=== PATIENT | male | born 1990 | race Hispanic/Latino ===

== ENCOUNTER 2016-07-22 09:47 | Day surgery (SDC) | payer MEDICAID ==
[2016-06-30 10:42] VITALS: BMI 18.8
[2016-07-22] MEDS ORDERED: Acetaminophen/Codeine elixir 120-12mg/5ml PO PRN (10:06)
[2016-07-22] MEDS ORDERED: Dextrose 5%/0.45% NS 1,000 ML IV SCH (10:15)
[2016-07-22] MEDS ORDERED: ceFAZolin IV 1 gm in Dextrose 1 GM/50 ML BAG IVPB ONE ×2 (10:29→12:05)
[2016-07-22] MEDS ORDERED: Lactated Ringer's 1,000 ML IV ONE (11:55)
[2016-07-22] MEDS ORDERED: Propofol 10 mg/ml Inj (20 ML) ONE ×2 (12:10→12:18)
[2016-07-22] MEDS ORDERED: Succinylcholine Chloride 20 mg/ml Syr (5 ml) IV ONE (12:14)
--- NOTE | 2016-07-22 12:32 | OP ---
PROCEDURE DATE: 07/22/2016 PREOPERATIVE DIAGNOSIS: Chronic tonsillitis. POSTOPERATIVE DIAGNOSIS: Chronic tonsillitis. PROCEDURE: Tonsillectomy. SIGNIFICANT FINDINGS: Chronically infected tonsils. DESCRIPTION OF PROCEDURE: The patient was brought in the room, placed in supine position. Anesthesi a was initiated through an ET tube. The patient was draped in usual manner. Mouth gag was placed in oral cavity, opened, suspended on the [place] dye stand loader usual manner. Right tonsil was grasped, pulled medially. Incision was made in the anterior tonsillar pillar using plasma knife. Dissection was don e between tonsil and tonsillar fossa using plasma knife until the tonsil was removed. Bleeding was c ontrolled using plasma knife. Next, the other tonsil was grasped, pulled medially. Incision was mad e in the anterior tonsillar pillar using plasma knife. Dissection was done between tonsil and tonsil lar fossa using plasma knife until the tonsil was removed. Bleeding was controlled using plasma knif e. Both tonsillar beds were rubbed vigorously with plasma knife wand. No bleeding was noted. Mouth gag was let down for 30 seconds, put back up, no bleeding was noted. Mouth gag was taken down and r emoved. The patient was taken off anesthesia and taken to recovery room in stable manner. Ion Barnes MD cc: [id number] TT: 07/22/2016 12:32:02 glenis
[2016-07-22] MEDS ORDERED: HYDROmorphone 0.5 mg/0.5 ml ISec IVP PRN (12:39)
[2016-07-22 12:55] VITALS: O2SAT 100
[2016-07-22] MEDS ORDERED: HYDROmorphone 0.5 mg/0.5 ml ISec IVP ONE (13:07)
[2016-07-22 14:48] VITALS: BP 115/70; PULSE 90; RESP 18; TEMP 97
== END 2016-07-22 14:50 | disposition home or self-care (01) ==
LOC: C.SDS 09:47
PROVIDERS: ATTEND Otolaryngology
DX: J35.01 Chronic tonsillitis (principal)
CPT/HCPCS: 42826; 88304; J0690; J1170; J2405; J2704; J3010; J7120

== ENCOUNTER 2016-07-28 05:18 | Emergency (ER) | payer MEDICAID ==
[2016-06-30 10:42] VITALS: BMI 18.8
== END 2016-07-28 06:15 | disposition home or self-care (01) ==
LOC: C.ER 05:18
DX: J95.831 Postprocedural hemorrhage of a respiratory system organ or structure following other procedure (principal); Y83.8 Other surgical procedures as the cause of abnormal reaction of the patient, or of later complication, without mention of misadventure at the time of the procedure; Z98.890 Other specified postprocedural states